=== PATIENT | male | born 2005 | race African-American/Black ===

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

== ENCOUNTER → 2024-08-18 | Outpatient (CLI) | payer OTHER ==
[2024-08-18 15:46] LABS: HCT 39.7 % (39.6-50.0); HGB 12.4 g/dL (13.0-17.0); MCH 27.4 pg (27.0-32.0); MCHC 31.2 g/dL (32.0-37.0); MCV 87.8 FL (80.0-97.0); Mean Platelet Volume 11.1 FL (9.5-12.2); NRBC Per 100 WBC 0 X 10*3/uL (0.00-0.01); Platelet Count 215 X 10*3/uL (140-440); RBC 4.52 X 10*6/uL (4.40-5.60); RDW 13.5 % (11.5-14.5); WBC 7.87 X 10*3/uL (4.50-10.00)
[2024-08-18 16:05] LABS: Estradiol 32.5 pg/mL
[2024-08-18 16:14] LABS: ALT 28 U/L (10-49); AST 19 U/L (14-35); Albumin/Globulin Ratio 1.43 Ratio (1.60-3.17); Alkaline Phosphatase 53 U/L (41-126); BUN/Creat Ratio 13.11 Ratio (12.00-20.00); Blood Urea Nitrogen 11.8 mg/dL (9.0-27.0); Calcium 9.3 mg/dL (8.7-10.3); Carbon Dioxide 24.7 mmol/L (21.6-31.8); Chloride 105 mmol/L (96-109); Globulin 2.8 g/dL (1.6-3.3); Glucose 89 mg/dL (70-110); Sodium 140 mmol/L (135-145); T4, Free (Free Thyroxine) 1.15 ng/dL (0.80-1.80); Total Bilirubin 0.5 mg/dL (0.3-1.2); Total Protein 6.8 g/dL (6.2-8.2)
[2024-08-18 16:50] LABS: Luteinizing Hormone 7.5 mIU/mL
== END | disposition home or self-care (01) ==
LOC: LABWHC1 07:31
PROVIDERS: ATTEND Internal Medicine
DX: E29.1 Testicular hypofunction (principal); R46.89 Other symptoms and signs involving appearance and behavior
CPT/HCPCS: 36415; 80053; 82626; 82670; 83002; 84146; 84403; 84439; 84443; 85027